=== PATIENT | female | born 1985 | race Caucasian/White ===

== ENCOUNTER 2022-01-06 05:31 | Emergency (ER) | payer OTHER, SELFPAY ==
[2022-01-06 05:38] VITALS: BP 146/85; PULSE 106; RESP 20; TEMP 36.3; O2SAT 100
--- NOTE | 2022-01-06 05:53 | ED.ALLEREA ---
HPI - Allergic Reaction General Chief complaint: Allergic Reaction Stated complaint: rash, URI, allergic reaction Time Seen by Provider: 01/06/22 05:37 History of Present Illness HPI narrative: Patient had a COVID exposure at work and started having URI symptoms with runny nose and slight nausea, but she is more bothered by an itchy rash that started 8 days ago, was initially under her left breast, then seemed to spread to her underarms, then her legs and her other arm and neck. It is intensely itchy, she has tried taking Benadryl but Benadryl makes her sleepy, she has also tried hydrocortisone cream without much improvement. She does not think she has been exposed to any new soap or detergent, she does have a dog but the dog does not go anywhere but the backyard and she does not think there is poison marcia in the yard. Related Data Allergies Allergy/AdvReac Type Severity Reaction Status Date / Time bupropion [From Wellbutrin] Allergy Hives Verified 01/06/22 05:42 doxycycline Allergy Unknown Verified 01/06/22 05:42 Review of Systems Review of Systems: CONST: No fever. HEENT: Runny nose C/V: No chest pain RESP: No difficulty breathing GI: Slight nausea : No dysuria. M/S: Itchy rash on arms and legs SKIN: Itchy rash NEURO: [No headache or focal numbness or weakness] PSYCH: [No depression] [facility] Past Medical History Medical History (Updated 01/06/22 @ 06:02 by Consuelo Crawford MD) No significant active problems Social History Social History (Updated 01/06/22 @ 06:04 by Consuelo Crawford MD) Smoking status: Never smoker Exam Narrative: EXAMINATION OF ORGAN SYSTEMS/BODY AREAS: Constitutional: Vital signs per nursing GENERAL: Appears to be quite itchy HEAD: Normal with no signs of head trauma. EYES: EOMI, conjunctiva normal ENT: Rhinorrhea LUNGS: Nonlabored breathing. HEART: [Regular rate and rhythm] ABD: Soft, nontender EXT: Erythematous pruritic maculopapular rash all extremities SKIN: per above NEURO: [Alert and oriented x 3. No gross focal sensory or strength deficits.] PSYCH: Normal affect Course Vital Signs Vital signs: Vital Signs Temperature 97.3 F L 01/06/22 05:38 Pulse Rate 106 H 01/06/22 05:38 Respiratory Rate 20 01/06/22 05:38 Blood Pressure 146/85 H 01/06/22 05:38 Pulse Oximetry 100 01/06/22 05:38 Oxygen Delivery Room Air 01/06/22 05:38 Temperature 97.3 F L 01/06/22 05:38 Pulse Rate 106 H 01/06/22 05:38 Respiratory Rate 20 01/06/22 05:38 Blood Pressure 146/85 H 01/06/22 05:38 Pulse Oximetry 100 01/06/22 05:38 Oxygen Delivery Room Air 01/06/22 05:38 MDM - Allergic Reaction MDM Narrative Medical decision making narrative: 36-year-old female presenting with 8 days of pruritic rash, no new exposures, vital signs within acceptable limits, exam shows erythematous maculopapular rash extending around the trunk, axilla, upper and lower extremities, rash appears consistent with contact dermatitis, no signs of anaphylaxis or airway compromise. Given the extensive symptoms I will put her on a steroid taper for 2 weeks, I have urged her to follow-up with her primary care doctor especially if symptoms not improved over the next few days. Stable for discharge home at this time. Discharge Plan Discharge Clinical Impression: Contact dermatitis Patient Disposition: Home, Self-Care Condition: Stable Instructions: Antibiotic Form, Contact Dermatitis (ED), Viral Syndrome (ED) Additional Instructions: Take the medications as prescribed and follow up with your doctor if not improved. Prescriptions: New prednisone 20 mg tablet See Rx Instructions .ROUTE .COMPLEX Qty: 15 0RF Rx Instructions: 40 mg orally daily for first 4 days, then 20 mg orally daily for next 5 days, then 10 mg orally daily for last 4 days. cetirizine 10 mg tablet 10 mg PO DAILY Qty: 30 0RF ondansetron 4 mg tablet,disintegrating 4 mg PO Q8H PRN (Reason: nausea and
[2022-01-06] MEDS: ONDANSETRON HCL ODT 4 MG TABLET PO (06:02)
[2022-01-06] MEDS: predniSONE 20 MG TABLET 40 MG PO (06:03)
== END 2022-01-06 06:09 | disposition home or self-care (01) ==
LOC: ANHED 05:59
PROVIDERS: Emergency Provider Emergency Medicine
DX: L25.9 Unspecified contact dermatitis, unspecified cause (principal)
CPT/HCPCS: 99283; A9270; J7512

== ENCOUNTER 2023-03-20 08:03 | Emergency (ER) | payer OTHER, SELFPAY ==
--- NOTE | ~2023-03-20 | XR_ITS ---
XR foot LT min 3V 03/20/2023 08:32 INDICATION: Left foot pain PROCEDURE: 4 views left foot COMPARISON: No prior studies for comparison. FINDINGS: Fracture, dislocation or subluxation is not identified. Lisfranc joint intact. The soft tis sues appear within normal limits. No foreign bodies are identified. IMPRESSION: 1: NO ACUTE BONE OR JOINT ABNORMALITY IDENTIFIED. Reviewed, dictated and finalized at location B.
[2023-03-20 08:17] VITALS: BP 125/68; PULSE 79; RESP 16; TEMP 36.9; O2SAT 100
--- NOTE | 2023-03-20 08:23 | ED.LOWEXIN ---
HPI - Extremity Injury (Lower) General Chief Complaint: Extremity Injury, Lower Stated Complaint: left foot injury Time Seen by Provider: 03/20/23 08:17 Source: patient and RN notes reviewed Mode of arrival: ambulatory Limitations: no limitations History of Present Illness HPI Narrative: Patient presents today complaining of a left lateral foot pain. States she rolled her foot while walking down some stairs yesterday afternoon. Denies numbness or tingling. Currently rates her pain 6/10 with weight-bearing. She has applied ice and taking ibuprofen with mild relief. Related Data Home Medications Medication Instructions Recorded Confirmed drospirenone 3 mg-ethinyl 1 tablet PO DAILY 03/20/23 03/20/23 estradiol 0.02 mg tablet (Loryna (28)) montelukast 10 mg tablet 10 mg PO DAILY 03/20/23 03/20/23 sertraline 50 mg tablet 50 mg PO DAILY 03/20/23 03/20/23 spironolactone 100 mg tablet 100 mg PO DAILY 03/20/23 03/20/23 trazodone 50 mg tablet 25 mg PO HS PRN Sleep 03/20/23 03/20/23 Allergies Allergy/AdvReac Type Severity Reaction Status Date / Time bupropion [From Wellbutrin] Allergy Intermediate Hives Verified 03/20/23 08:43 doxycycline Allergy Intermediate Hives Verified 03/20/23 08:43 Review of Systems Review of Systems: CONSTITUTIONAL: Denies body aches, fever, chills, or sweats. EYES: Denies visual changes, redness, or discharge. ENT: Denies rhinorrhea, congestion, sore throat, or otalgia. CARDIOVASCULAR: Denies chest pain, palpitations, or edema. RESPIRATORY: Denies cough or dyspnea. GASTROINTESTINAL: Denies abdominal pain, nausea, vomiting, or diarrhea. GENITOURINARY: Denies dysuria or hematuria. SKIN: Denies rash, itching, or wounds. MUSCULOSKELETAL: Denies back pain, or myalgia.+ left foot pain NEUROLOGIC: Denies headache, numbness, tingling, or weakness. PSYCH: Denies depression or anxiety. [facility] Past Medical History Medical History No significant active problems Social History Social History Smoking status: Never smoker Comments At time of signature, I have reviewed and agree with nursing past medical, surgical, social and family history unless otherwise noted. Please see nursing chart for further information. There is no relevant family history pertinent to the presenting complaint Exam Narrative: GENERAL: Well-appearing, well-nourished, and in no acute distress. HEAD: Normocephalic, atraumatic. EYES: EOMI. No redness or drainage. Conjunctivae normal. ENT: Mucous membranes pink and moist. NECK: Normal AROM. CHEST: No respiratory distress. EXTREMITIES: Left foot: Tenderness along the proximal 3rd and 4th metatarsals with mild edema and ecchymosis. Distal sensation intact. Capillary refill normal. Pedal pulse normal. Full range of motion of the ankle with increased pain. SKIN: Warm, dry, no rash. Capillary refill normal. Normal skin turgor. NEURO: No focal deficits. Alert and oriented x3. Gait steady. PSYCH: Normal affect. No signs of depression or anxiety. Course Course Level of Care: Express Care Visit Vital Signs Vital signs: Vital Signs Temperature 98.5 F 03/20/23 08:17 Pulse Rate 79 03/20/23 08:17 Respiratory Rate 16 03/20/23 08:17 Blood Pressure 125/68 03/20/23 08:17 Pulse Oximetry 100 03/20/23 08:17 Oxygen Delivery Room Air 03/20/23 08:17 Temperature 98.5 F 03/20/23 08:17 Pulse Rate 79 03/20/23 08:17 Respiratory Rate 16 03/20/23 08:17 Blood Pressure 125/68 03/20/23 08:17 Pulse Oximetry 100 03/20/23 08:17 Oxygen Delivery Room Air 03/20/23 08:17 Reviewed. Pt has been instructed to follow up with her PCP regarding her elevated blood pressure today. MDM - Extremity Injury (Lower) MDM Narrative Medical decision making narrative: X-ray negative. Exam consistent with foot sprain. [employer]
== END 2023-03-20 09:02 | disposition home or self-care (01) ==
PROVIDERS: Emergency Provider Nurse Practitioner
DX: S93.602A Unspecified sprain of left foot, initial encounter (principal); X50.9XXA Other and unspecified overexertion or strenuous movements or postures, initial encounter; F41.9 Anxiety disorder, unspecified; F32.A Depression, unspecified
CPT/HCPCS: 73630; 99213; G0463

== ENCOUNTER 2024-12-05 18:12 | Emergency (ER) | payer OTHER, SELFPAY ==
[2024-12-05 18:21] VITALS: BP 120/82; PULSE 87; RESP 14; TEMP 36.6; O2SAT 100
--- NOTE | 2024-12-05 18:32 | ED.EAR ---
HPI - Ear Problem General Chief complaint: Ear Stated complaint: fluid in ears/wax, dizzy Time Seen by Provider: 12/05/24 18:32 Source: patient, RN notes reviewed and old records reviewed Mode of arrival: ambulatory Limitations: no limitations History of Present Illness HPI Narrative: 39-year-old female presents to the [facility] with 3 week history of fluid behind the ears, the last couple of days has felt increased fluid and slightly off balance. Denies any fevers. Denies any other symptoms Related Data Home Medications ?Medication ?Instructions ?Recorded ?Confirmed ?Last Taken ?Type drospirenone 3 mg-ethinyl 1 tablet PO DAILY 03/20/23 12/05/24 Unknown History estradiol 0.02 mg tablet (Loryna (28)) montelukast 10 mg tablet 10 mg PO DAILY 03/20/23 12/05/24 Unknown History sertraline 50 mg tablet 50 mg PO DAILY 03/20/23 12/05/24 Unknown History trazodone 50 mg tablet 25 mg PO HS PRN Sleep 03/20/23 12/05/24 Unknown History fluticasone propionate 50 1 spray intranasal BID 12/05/24 12/05/24 Unknown History mcg/actuation nasal spray,suspension tirzepatide (weight loss) 5 mg/0.5 mg subcut 12/05/24 Unknown History mL subcutaneous pen injector (Zepbound) tirzepatide (weight loss) 7.5 7.5 mg subcut WEEKLY 12/05/24 12/05/24 Unknown History mg/0.5 mL subcutaneous pen injector (Zepbound) Allergies Allergy/AdvReac Type Severity Reaction Status Date / Time bupropion (From Wellbutrin) Allergy Intermediate Hives Verified 12/05/24 18:57 Review of Systems Review of Systems: All systems reviewed & are unremarkable except as noted in HPI and below Constitutional: Constitutional: Reports no additional constitutional complaints ENT: Reports as per HPI Cardiovascular: Cardiovascular: Reports no additional cardiovascular complaints, Denies chest pain and Denies dyspnea Respiratory: Respiratory: Reports no additional respiratory complaints, Denies chest congestion, Denies cough and Denies dyspnea Musculoskeletal: Musculoskeletal: Reports no additional musculoskeletal complaints Integumentary/Breasts: Skin/Breast: Reports system reviewed and no additional complaints, except as docu [facility] Past Medical History Medical History No significant active problems Social History Social History Smoking status: Never smoker Comments At the time of my signature, I reviewed and agree with the nursing past medical, surgical, social, and family history. There is no relevant family history pertinent to the patient complaint. Exam Const: General: cooperative, healthy appearing, comfortable, no acute distress, well developed, alert and well nourished Nutritional Appearance: well nourished Orientation/consciousness: patient oriented x3 Limitations: no limitations HENMT: Head: normal to inspection Ears: hearing grossly normal bilaterally, external ears normal and TM abnormal bulging on the left and with fluid behind the TM bilateral (Greater on left than right) Face/Nose/Sinus: Normal external nose present, Normal nares present and No nasal discharge present Mouth: Yes Normal oral and palatal mucosa present, Yes lip normal, Yes tongue normal and Yes moist mucous membranes Throat: posterior oropharynx normal, uvula midline and no uvular edema Eyes: General: appearance normal, both eyes and all related structures Alignment and Position: alignment normal Neck: Neck: normal visual inspection, full ROM, no lymphadenopathy and no meningeal signs Chest: Chest palpation & inspection: normal inspection of the chest Resp: Effort & Inspection: normal respiratory effort and able to speak in complete sentences Auscultation: clear to auscultation bilaterally, no crackles, no rales, no rhonchi and no wheezes Cardio: Rate: regular rate Skin: General skin exam: normal color and no rashes or lesions noted Neuro: General: patient oriented x3, gait normal, moves all extremities and no meningeal signs Cognition (Neuro): normal cognition Speech: normal speech Gait exam (Neuro): Normal gait present Extrem: General: normal to inspection, full ROM, capillary refill normal and normal gait Psych: Appearance: grossly normal and well kempt Mental Status: mental status grossly normal Speech and movement: Normal speech and movement present and Clear speech present Affect: normal affect Attitude: cooperative Course Course Level of Care: Express Care Visit Vital Signs Vital signs: Vital Signs Temperature 97.9 F 12/05/24 18:21 Pulse Rate 87 12/05/24 18:21 Respiratory Rate 14 12/05/24 18:21 Blood Pressure 120/82 12/05/24 18:21 Pulse Oximetry 100 12/05/24 18:21 Oxygen Delivery Room Air 12/05/24 18:21 Temperature 97.9 F 12/05/24 18:21 Pulse Rate 87 12/05/24 18:21 Respiratory Rate 14 12/05/24 18:21 Blood Pressure 120/82 12/05/24 18:21 Pulse Oximetry 100 12/05/24 18:21 Oxygen Delivery Room Air 12/05/24 18:21 Reviewed Medical Decision Making MDM Narrative Medical decision making narrative: Patient sitting comfortably in exam room. Nontoxic, vitals stable. Patient in no acute distress Patient presents for fluid behind her ears with some dizziness. Clear fluid noted. No acute findings otherwise. Patient appropriate for outpatient treatment with close follow-up Discharge instructions reviewed with patient, as well as provided in writing per nursing staff. The instructions also include specific and strict return/GO TO THE ER as well as f/u information. All questions have been answered, and the patient deny any further questions with discharge and discharge plan. Some parts of this dictation were generated by voice recognition software and may contain typographical and/or grammatical inaccuracies. Differential Diagnosis Differential Diagnosis: Vertigo, otitis media, serous otitis, otitis externa, URI Medical Records Medical records reviewed: Yes I reviewed the external patient's medical records. Vital Signs Vital Signs: Vital Signs Temperature 97.9 F 12/05/24 18:21 Pulse Rate 87 12/05/24 18:21 Respiratory Rate 14 12/05/24 18:21 Blood Pressure 120/82 12/05/24 18:21 Pulse Oximetry 100 12/05/24 18:21 Oxygen Delivery Room Air 12/05/24 18:21 Temperature 97.9 F 12/05/24 18:21 Pulse Rate 87 12/05/24 18:21 Respiratory Rate 14 12/05/24 18:21 Blood Pressure 120/82 12/05/24 18:21 Pulse Oximetry 100 12/05/24 18:21 Oxygen Delivery Room Air 12/05/24 18:21 Reviewed Lab Data Lab results reviewed: Yes I reviewed the patient's lab results. Labs: Reviewed Critical Care Time Critical Care Time Critical Care Time: No Discharge Plan Discharge Clinical Impression: Acute serous otitis media of left ear Patient Disposition: Home Condition: Stable Instructions: Antibiotic Form, Fluid In The Ear (Serous Otitis Media) (ED) Additional Instructions: Continue to take Claritin or Zyrtec every day. Use Flonase twice a day. Follow-up with your primary care provider For worsening symptoms go directly to the emergency room Patient Language: Korean Prescriptions: New methylprednisolone [Medrol (Steven)] 4 mg tablets,dose pack See Rx Instructions PO .COMPLEX Qty: 21 0RF Rx Instructions: orally per package directions meclizine 25 mg tablet 25 mg PO BID PRN (Reason: dizziness) Qty: 15 0RF No Action fluticasone propionate 50 mcg/actuation spray,suspension 1 spray INTRANASAL BID Zepbound 5 mg/0.5 mL pen injector SUBCUT Zepbound 7.5 mg/0.5 mL pen injector 7.5 mg SUBCUT WEEKLY montelukast 10 mg tablet 10 mg PO DAILY sertraline 50 mg tablet 50 mg PO DAILY drospirenone-ethinyl estradiol [Loryna (28)] 3-0.02 mg tablet 1 tablet PO DAILY trazodone 50 mg Tablet 25 mg PO HS PRN (Reason: Sleep) cetirizine 10 mg tablet 10 mg PO DAILY Qty: 30 0RF Follow-up/Referrals: UNKNOWN,DOCTOR [Primary Care Provider] - Stand Alone Forms: Work/School Release IP Time of Disposition: 18:43
== END 2024-12-05 18:46 | disposition home or self-care (01) ==
PROVIDERS: Emergency Provider Nurse Practitioner
DX: H65.02 Acute serous otitis media, left ear (principal)
CPT/HCPCS: 99213; G0463